=== PATIENT | male | born 1965 | race Two or more races ===

== ENCOUNTER → 2023-01-30 | Outpatient (CLI) | payer BC ==
[2023-01-31 08:06] LABS: Immunoglobulin A 213 mg/dL (90-386)
== END | disposition home or self-care (01) ==
LOC: LAB 12:15
PROVIDERS: ATTEND Internal Medicine Gastroenterology
DX: R10.9 Unspecified abdominal pain (principal); R11.0 Nausea
CPT/HCPCS: 82270; 82784; 83516; 86255